=== PATIENT | male | born 1985 | race Two or more races ===

== ENCOUNTER 2018-06-20 21:54 | Emergency (ER) | payer OTHER ==
[~2018-06-20] VITALS: Ht 195.6 cm; Wt 124.7 kg
--- NOTE | 2018-06-20 22:30 | NUR ---
PT BIBSELF C/O ABD PAIN WITH RECTAL BLEEDING X 1 YEAR. PT AOX4. NAD NOTED. RESP EVEN AND UNLABORED. PT ON MONITOR IN BED 11. WILL CONTINUE TO MONITOR.
--- NOTE | 2018-06-20 23:07 | NUR ---
BLOOD DRAWN AND GIVEN TO LAB
[2018-06-20 23:21] LABS: BASOPHILS # (AUTO) 0.1 /CMM (0.0-0.2); EOSINOPHILS % (AUTO) 0.4 % (0.0-6.0); HEMATOCRIT 44 % (39-51); HEMOGLOBIN 14.8 g/dL (13.5-17.5); LYMPHOCYTES # (AUTO) 2.1 /CMM (0.8-4.8); LYMPHOCYTES % (AUTO) 19.9 % (20.0-44.0); MEAN CORPUSCULAR HGB CONC 34 g/dl (31.0-36.0); MEAN CORPUSCULAR VOLUME 90 fL (80-96); MONOCYTES # (AUTO) 0.8 /CMM (0.1-1.30); MONOCYTES % (AUTO) 7.3 % (2.0-12.0); NEUTROPHILS # (AUTO) 7.5 /CMM (1.8-8.9); NEUTROPHILS % (AUTO) 71.4 % (43.0-81.0); PLATELET COUNT (AUTO) 365 /CMM (150-450); RED BLOOD CELL COUNT(AUTO) 4.91 MIL/uL (4.5-6.0); WHITE BLOOD COUNT (AUTO) 10.6 K/uL (4.3-11.0)
[2018-06-20 23:44] LABS: ALBUMIN 4.1 g/dL (3.4-5.0); BILIRUBIN,DIRECT 0.1 mg/dL (0.0-0.2); BILIRUBIN,TOTAL 0.6 mg/dL (0.2-1.0); CALCIUM, SERUM 9.2 mg/dL (8.5-10.1); CREATININE 0.9 mg/dL (0.6-1.3); POTASSIUM 3.8 mmol/L (3.5-5.1); TOTAL PROTEIN, SERUM 7.6 g/dL (6.4-8.2)
--- NOTE | 2018-06-21 01:07 | NUR ---
IV removed. Catheter intact and site benign. Pressure and 4x4 applied to site. No bleeding noted.Patient discharged to home in stable condition. Written and verbal after care instructions given. Patient verbalizes understanding of instruction.
[2018-06-21 01:08] VITALS: BP 134/82
== END 2018-06-21 01:28 | disposition home or self-care (01) ==
LOC: ER 21:56
DX: K92.1 Melena (principal); G89.29 Other chronic pain; M54.40 Lumbago with sciatica, unspecified side; F17.200 Nicotine dependence, unspecified, uncomplicated
CPT/HCPCS: 36415 ×2; 80048; 80076; 83690; 85025; 85730; 86850; 99283; A4606

== ENCOUNTER 2021-04-10 09:41 | Emergency (ER) | payer OTHER ==
[~2021-04-10] VITALS: Ht 188 cm; Wt 113.4 kg
[2021-04-10 09:56] VITALS: BP 135/83
[2021-04-10] MEDS ORDERED: SULF1TAB48 PO (10:02)
[2021-04-10] MEDS ORDERED: CEPH500C2 PO (10:02)
--- NOTE | 2021-04-10 10:03 | NUR ---
THE PATIENT BIBS FOR C/O LLE PAIN 10/06 AND SWELLING X 1 WEEK S/P HITTING A "BRICK" WHILE WALKING. NO APPARENT DEFORMITY NOTED. WILL CONTINUE TO MONITOR THE PATIENT.
--- NOTE | 2021-04-10 10:16 | NUR ---
Patient discharged to home in stable condition. Written and verbal after care instructions given. Patient verbalizes understanding of instruction.
== END 2021-04-10 10:16 | disposition home or self-care (01) ==
LOC: ER 09:41
DX: T81.49XA Infection following a procedure, other surgical site, initial encounter (principal); F17.200 Nicotine dependence, unspecified, uncomplicated